=== PATIENT | male | born 2000 | race Caucasian/White ===

== ENCOUNTER 2022-05-02 19:53 | Emergency (ER) | payer OTHER, SELFPAY ==
--- NOTE | ~2022-05-02 | XR_ITS ---
EXAMINATION: XR CHEST CLINICAL INFORMATION: Shortness of breath COMPARISON: Chest x-ray on 06/10/2011 TECHNIQUE: 2 views of the chest were obtained. FINDINGS: No significant abnormality is noted involving the heart, lungs, mediastinum, bony thorax or soft tissues. XR/XR chest 2V IMPRESSION: Unremarkable examination.
[2022-05-02 20:05] VITALS: BP 120/58; PULSE 104; RESP 16; TEMP 37.7; O2SAT 99; BMI 26.6
--- NOTE | 2022-05-02 20:05 | ED.URI ---
HPI - URI/Sore Throat General Chief Complaint: General Medical Stated Complaint: fever,sob,chest hurts ,cough Time Seen by Provider: 05/02/22 22:03 Related Data Previous Rx's Medication Instructions Recorded fluoxetine 20 mg capsule 20 mg PO DAILY 90 days #90 caps 10/21/21 clonazepam 0.5 mg tablet 0.5 mg PO DAILY PRN anxiety #7 tabs 03/05/22 fluoxetine 10 mg capsule 10 mg PO DAILY 90 days #90 caps 03/05/22 trazodone 100 mg tablet 100 mg PO BEDTIME 90 days #90 tabs 03/05/22 clotrimazole 1 % topical cream 1 appl topical BID 4 weeks #45 04/09/22 grams miconazole nitrate 2 % topical 1 appl topical BID #85 grams 04/09/22 powder (Zeasorb AF) Allergies Allergy/AdvReac Type Severity Reaction Status Date / Time No Known Allergies Allergy Verified 04/09/22 09:23 [facility] Past Medical History Medical History Chronic headaches Generalized anxiety disorder Recurrent depression Family History Family History Mother No problems noted. Father No problems noted. Brother No problems noted. Brother No problems noted. Brother No problems noted. Paternal Aunt Brain cancer Maternal Uncle Cholangiocarcinoma Father Cancer of white blood cells Paternal Grandmother Myocardial infarction Social History Social History Household Members: Family Housing: Other (with parents) Alcohol intake: current Alcohol intake frequency: holidays/special occasions only Patient Tobacco Use Status: Never used Tobacco Smoked in Last 30 Days: No e-Cigarette/Vaping Use: Never Used Second Hand Smoke Exposure: No Use of substances other than those prescribed or required for medical reasons: No Advance Directives: No Current occupational status: employed Cognitive needs: No Hearing needs: No Vision needs: No Physical Exam Vital Signs: Vital Signs: Last Vital Signs Temp 99.8 F 05/02/22 23:42 Pulse 94 05/02/22 23:42 Resp 16 05/02/22 23:42 BP 109/57 L 05/02/22 23:42 Pulse Ox 95 05/02/22 23:42 O2 Del Method 05/02/22 23:42 BMI result Body Mass Index 26.6 Course Course Course Narrative: RME: Patient is a 21-year-old male with a past medical history of anxiety and insomnia, who presents emergency department for evaluation of respiratory symptoms. Reports last night began with shortness of breath, today with fever T max 103, chest tightness with difficulty breathing, cough. Denies sick contacts. Has not received vaccination for COVID-19 or influenza. States that he had COVID-19 diagnosed 16 days ago, symptoms lasted for approximately 3 days and then completely resolved. He was symptom-free for 2 weeks. PE: CA&)x4. No apparent respiratory distress. Speaking clear full sentences. LSCTA. Plan: COVID-19/influenza testing, chest x-ray Medications Administered Discontinued Medications Generic Name Dose Route Start Last Admin Trade Name Freq PRN Reason Stop Dose Admin Acetaminophen 975 mg 05/02/22 22:16 05/02/22 22:21 Acetaminophen 325 Mg Tablet PO 05/02/22 22:17 975 mg ONCE ONE Administration MDM - URI/Sore Throat Lab Data Labs: Lab Results 05/02/22 05/02/22 05/02/22 Range/Units 20:12 20:12 22:31 COVID-19 ([facility]IN) Negative (Negative) COVID-19 Clin Com See Note Influenza Type A (MIREYA) Negative (Negative) Influenza Type A (PCR) NEGATIVE (Negative) Influenza Type B (MIREYA) Negative (Negative) Influenza Type B (PCR) NEGATIVE (Negative) Influenza A & B Note See Note RSV RNA Qual (PCR) NEGATIVE (Negative) SARS-CoV-2 RNA (RT-PCR) NEGATIVE (Negative) Discharge Plan Discharge Clinical Impression: Acute viral syndrome Patient Disposition: Home, Self-Care Instructions: Viral Syndrome (ED) Additional Instructions: May take Tylenol, 1000 mg every 4 hours and/or ibuprofen 600 mg every 8 hours. Prescriptions: No Action fluoxetine 10 mg capsule 10 mg PO DAILY 90 Days Qty: 90 2RF trazodone 100 mg tablet 100 mg PO BEDTIME 90 Days Qty: 90 2RF clonazepam 0.5 mg tablet 0.5 mg PO DAILY PRN (Reason: anxiety) Qty: 7 0RF fluoxetine 20 mg capsule 20 mg PO DAILY 90 Days Qty: 90 1RF clotrimazole 1 % cream 1 appl topical BID 28 Days Qty: 45 0RF miconazole nitrate [Zeasorb AF] 2 % powder 1 appl topical BID Qty: 85 2RF Referrals: Po,Ned Palmer MD [Primary Care Provider] - 3 days Stand Alone Forms: Work/School Release Interventions: ED Discharge Assessment Last Done: 05/03/22 01:00 Discharge Date/Time: 05/03/22 01:01
[2022-05-02 20:35] LABS: IDNOW Serial# 9DB6401D; Influenza A Negative (Negative); Influenza B2 Negative (Negative)
[2022-05-02 20:36] LABS: COVID-19 Test Negative (Negative); IDNOW Serial# 55D5AD1C
[2022-05-02 22:00] VITALS: BP 114/54; PULSE 87; RESP 16; TEMP 39.3; O2SAT 99
--- NOTE | 2022-05-02 22:16 | ED.SOB ---
HPI - SOB/Dyspnea General Chief Complaint: General Medical Stated Complaint: fever,sob,chest hurts ,cough Time Seen by Provider: 05/02/22 22:03 Source: patient and family Mode of arrival: ambulatory Limitations: no limitations History of Present Illness HPI Narrative: 21-year-old male with no significant past medical history presents to the emergency department today complaining of difficulty breathing. States last night while at work, it started, it has progressed throughout today. The patient noted a temperature of 103.5? F at home this morning, but no other symptoms. Patient states he does have a cough and this produces some midsternal chest pain. COVID positive approximately 2 and half weeks ago. Nonsmoker, no ill contacts. The patient does state there are no exacerbating factors, although sitting up does relieve his symptoms somewhat. MD elicited complaint: shortness of breath and cough Onset (ago): day(s) (1) Timing: constant Severity: moderate Exacerbating factors: nothing Related Data Home oxygen amount: none Previous Rx's Medication Instructions Recorded fluoxetine 20 mg capsule 20 mg PO DAILY 90 days #90 caps 10/21/21 clonazepam 0.5 mg tablet 0.5 mg PO DAILY PRN anxiety #7 tabs 03/05/22 fluoxetine 10 mg capsule 10 mg PO DAILY 90 days #90 caps 03/05/22 trazodone 100 mg tablet 100 mg PO BEDTIME 90 days #90 tabs 03/05/22 clotrimazole 1 % topical cream 1 appl topical BID 4 weeks #45 04/09/22 grams miconazole nitrate 2 % topical 1 appl topical BID #85 grams 04/09/22 powder (Zeasorb AF) Allergies Allergy/AdvReac Type Severity Reaction Status Date / Time No Known Allergies Allergy Verified 04/09/22 09:23 Review of Systems Constitutional: Constitutional: Denies chills, Denies fever(s) and Denies weakness Eyes: Eyes: Denies diplopia and Denies eye discharge ENT: Denies dizziness, Denies nasal congestion and Denies sore throat Cardiovascular: Cardiovascular: Denies syncope, Denies rapid heart rate, Denies Loss of Consciousness, Denies palpitations and Denies dyspnea Respiratory: Respiratory: Reports no additional respiratory complaints, Reports pain on inspiration, Reports pain with cough, Denies dyspnea and Denies wheezing Gastrointestinal: Gastrointestinal: Reports no additional gastrointestinal complaints, Denies diarrhea, Denies nausea and Denies vomiting Genitourinary: Genitourinary: Reports no additional male genitourinary complaints Musculoskeletal: Musculoskeletal: Reports no additional musculoskeletal complaints, Denies back pain and Denies myalgias Integumentary/Breasts: Skin/Breast: Denies jaundice Neurologic: Denies Abnormal speech present, Denies dizziness, Denies syncope, Denies Sensory deficit (Neuro) and Denies weakness Endocrine: Endocrine: Denies palpitations Hematologic/Lymphatic: Hematologic/Lymphatic: Denies lymphadenopathy Allergic/Immunologic: Allergic/Immunologic: Denies wheezing PMFSH Past Medical History Attestation statement: The following information was validated with the patient. Source: nursing notes reviewed Medical History Chronic headaches Generalized anxiety disorder Recurrent depression Family History Family History Mother No problems noted. Father No problems noted. Brother No problems noted. Brother No problems noted. Brother No problems noted. Paternal Aunt Brain cancer Maternal Uncle Cholangiocarcinoma Father Cancer of white blood cells Paternal Grandmother Myocardial infarction Social History Social History Household Members: Family Housing: Other (with parents) Alcohol intake: current Alcohol intake frequency: holidays/special occasions only Patient Tobacco Use Status: Never used Tobacco Smoked in Last 30 Days: No e-Cigarette/Vaping Use: Never Used Second Hand Smoke Exposure: No Use of substances other than those prescribed or required for medical reasons: No Advance Directives: No Current occupational status: employed Cognitive needs: No Hearing needs: No Vision needs: No Physical Exam Vital Signs: Vital Signs: Last Vital Signs Temp 99.8 F 05/02/22 23:42 Pulse 94 05/02/22 23:42 Resp 16 05/02/22 23:42 BP 109/57 L 05/02/22 23:42 Pulse Ox 95 05/02/22 23:42 O2 Del Method 05/02/22 23:42 BMI result Body Mass Index 26.6 Vital signs are normal with the exception of a temperature 102.7? F Const: General: cooperative, no acute distress, alert, awake and tired appearing; No diaphoretic Nutritional Appearance: average body habitus Orientation/consciousness: patient oriented x3 Limitations: no limitations HEENT: Head: Yes normal to inspection, Yes normocephalic and Yes atraumatic Ears: hearing grossly normal bilaterally General nose exam: Normal external nose present Face and sinus: Yes normal facial exam Mouth: Normal oral and palatal mucosa present Eyes: General: appearance normal, both eyes and all related structures Conjunctivae: conjunctivae normal Sclerae: sclerae normal Pupils: Equal, round and reactive pupils present EOM: EOMs intact bilaterally Neck: Neck: Yes normal visual inspection and Yes full ROM Resp: Effort & Inspection: normal respiratory effort, normal respiratory pattern, no cough and respiratory effort not decreased Auscultation: clear to auscultation bilaterally, no rales and no rhonchi Cardio: Rate: regular rate Rhythm: regular rhythm Heart sounds: no murmurs GI: Inspection: Yes normal to inspection, No Abdominal wall edema and No distended Palpation (GI): not soft and nontender Back/Spine/Pelvis: Cervical Spine: normal cervical lordosis and cervical ROM normal Skin: General skin exam: no rashes or lesions noted, no jaundice and no pallor Neuro: General: patient oriented x3 and CN's II-XI intact bilaterally Cranial nerves: Yes Equal, round and reactive pupils present Cognition (Neuro): normal cognition Speech: No Abnormal speech present Motor exam (neuro): 5/5 motor strength present throughout Sensory Exam: No Sensory deficit (Neuro) Medications Administered Discontinued Medications Generic Name Dose Route Start Last Admin Trade Name Freq PRN Reason Stop Dose Admin Acetaminophen 975 mg 05/02/22 22:16 05/02/22 22:21 Acetaminophen 325 Mg Tablet PO 05/02/22 22:17 975 mg ONCE ONE Administration MDM - SOB/Dyspnea MDM Narrative Medical decision making narrative: 21-year-old male with no significant past medical history presents with fever and cough. RSV, COVID, flu tests all negative. Chest x-ray negative. Patient was observed in the emergency department for several hours, did receive Tylenol, and has defervesced. He feels well enough to go home at this time. He will be advised to take ibuprofen and/or Tylenol over the next 24-36 hours. He is given a work note for tomorrow. Most likely diagnosis is a viral syndrome. Lab Data Attestation: I reviewed the patient's lab results. Lab results narrative: Negative COVID, negative flu, negative RSV. Labs: Lab Results 05/02/22 05/02/2205/02/22 Range/Units 20:12 20:12 22:31 COVID-19 ([facility]) Negative (Negative) COVID-19 Clin Com See Note Influenza Type A (MIREYA) Negative (Negative) Influenza Type A (PCR) NEGATIVE (Negative) Influenza Type B (MIREYA) Negative (Negative) Influenza Type B (PCR) NEGATIVE (Negative) Influenza A & B Note See Note RSV RNA Qual (PCR) NEGATIVE (Negative) SARS-CoV-2 RNA (RT-PCR) NEGATIVE (Negative) Imaging Data Chest x-ray: Attestation: I personally reviewed and interpreted this imaging study as follows: My impression: No acute disease Radiologist's impression: No acute pulmonary disease Discharge Plan Discharge Clinical Impression: Acute viral syndrome Patient Disposition: Home, Self-Care Instructions: Viral Syndrome (ED) Additional Instructions: May take Tylenol, 1000 mg every 4 hours and/or ibuprofen 600 mg every 8 hours. Prescriptions: No Action fluoxetine 10 mg capsule 10 mg PO DAILY 90 Days Qty: 90 2RF trazodone 100 mg tablet 100 mg PO BEDTIME 90 Days Qty: 90 2RF clonazepam 0.5 mg tablet 0.5 mg PO DAILY PRN (Reason: anxiety) Qty: 7 0RF fluoxetine 20 mg capsule 20 mg PO DAILY 90 Days Qty: 90 1RF clotrimazole 1 % cream 1 appl topical BID 28 Days Qty: 45 0RF miconazole nitrate [Zeasorb AF] 2 % powder 1 appl topical BID Qty: 85 2RF Referrals: Po,Ned Palmer MD [Primary Care Provider] - 3 days Stand Alone Forms: Work/School Release
[2022-05-02] MEDS: Acetaminophen 325 MG TABLET 975 MG PO (22:21)
[2022-05-02 23:20] LABS: Influenza A PCR NEGATIVE (Negative); Influenza B PCR NEGATIVE (Negative); Resp Syncy Virus RNA Qual PCR NEGATIVE (Negative); SARS COV2 PCR INHOUSE NEGATIVE (Negative)
[2022-05-02 23:42] VITALS: BP 109/57; PULSE 94; RESP 16; TEMP 37.7; O2SAT 95
== END 2022-05-03 01:01 | disposition home or self-care (01) ==
PROVIDERS: Nurse Practitioner Family; Emergency Provider Emergency Medicine; PCP Internal Medicine
DX: B34.9 Viral infection, unspecified (principal); R50.9 Fever, unspecified; R05.9 Cough, unspecified; Z20.822 Contact with and (suspected) exposure to COVID-19
CPT/HCPCS: 0241U; 71046; 87502; 87635; 99283; 99284

== ENCOUNTER 2024-04-13 08:30 | Outpatient (REF) | payer OTHER, SELFPAY ==
[2024-04-13 09:53] LABS: MANUAL DIFF FLAG NO
[2024-04-13 11:03] LABS: Basophils Percent Auto 0.7 % (0-2); Eosinophils Absolute Auto 0.1 X10*3/uL (0.0-0.4); Eosinophils Percent Auto 1.5 % (0-4); Hematocrit 46.7 % (42.0-52.0); Hemoglobin 15.8 g/dl (14.0-18.0); Imm Gran Abs Auto 0.02 X10*3/uL (0.00-0.03); Imm Gran Pct Auto 0.3 % (0.0-0.4); Lymphocytes Absolute Auto 1.5 X10*3/uL (1.2-4.9); Lymphocytes Percent Auto 25.2 % (20-40); Mean Corpuscular HGB Conc 33.8 g/dl (31.0-36.0); Mean Corpuscular Hemoglobin 29.7 pg (27.0-33.0); Mean Corpuscular Volume 87.8 fL (80.0-98.0); Mean Platelet Volume 11.1 fL (9.4-12.4); Monocytes Absolute Auto 0.4 X10*3/uL (0.1-1.2); Monocytes Percent Auto 7.2 % (2-11); Neutrophils Percent Auto 65.1 % (45-73); Platelet Count 216 X10*3/uL (160-400); Red Blood Count 5.32 X10*6/uL (4.60-5.80); Red Cell Distribution Width 12.4 % (11.0-16.0); White Blood Count 6.1 X10*3/uL (4.8-10.8)
[2024-04-13 11:45] LABS: Alanine Aminotransferase 52 U/L (0-40); Albumin Level 4.3 g/dL (3.5-5.0); Alkaline Phosphatase 61 U/L (39-117); Anion Gap 12 (12-20); Aspartate Amino Transferase 27 U/L (5-37); Bilirubin Total 0.3 mg/dL (0.0-1.0); Blood Urea Nitrogen 14 mg/dL (9-16); Calcium 9.6 mg/dL (8.4-10.2); Carbon Dioxide 26 mmol/L (22-29); Chloride 108 mmol/L (96-108); Estimated Glomerular Filt Rate > 60; Glucose Random 112 mg/dL (60-115); Sodium 142 mmol/L (135-145)
[2024-04-13 12:04] LABS: Free T4 (Free Thyroxine) 0.71 ng/dL (0.71-1.85); TSH reflex Free T4 1.96 uIU/mL (0.32-4.0)
[2024-04-13 12:11] LABS: Folate 5.9 ng/mL (> or = 4.0); Vitamin B12 522 pg/mL (200-900)
[2024-04-17 16:59] LABS: Vitamin D 25-OH, D2 <4 ng/mL; Vitamin D 25-OH, D3 19 ng/mL; Vitamin D 25-OH, Total 19 ng/mL (30-100)
== END 2024-04-13 08:31 | disposition home or self-care (01) ==
LOC: HO.LAB 08:30
PROVIDERS: PCP Internal Medicine
DX: Z00.00 Encounter for general adult medical examination without abnormal findings (principal); B35.6 Tinea cruris; F41.1 Generalized anxiety disorder; F33.9 Major depressive disorder, recurrent, unspecified; K21.9 Gastro-esophageal reflux disease without esophagitis; Z79.899 Other long term (current) drug therapy
CPT/HCPCS: 36415; 80053; 82306; 82607; 82746; 84439; 84443; 85025; 96127; 99395

== ENCOUNTER 2024-04-13 08:30 | Outpatient (AMB) | payer OTHER, SELFPAY ==
[2024-04-13 08:39] VITALS: BP 106/70; PULSE 110; O2SAT 96; BMI 24.8
--- NOTE | 2024-04-13 08:39 | A.OFFPC_ITS ---
Vital Signs 04/13/24 08:39 Height 6 ft Weight 183 lb BMI 24.8 BP 106/70 Blood Pressure Location Lt brachial Position Sitting Pulse 110 H Pulse Source Pulse Oximeter Pulse Oximetry (%) 96 Oxygen Delivery Method Room Air Intake Visit Reasons: annual exam Intake Note: Patient is here today for a physical. Allergies No Known Allergies Allergy (Verified 04/13/24 08:58) Medication List - Last Reconciled 04/13/24 by Nancy Austin PA-C clonazepam 0.5 mg PO DAILY PRN fluoxetine 10 mg PO DAILY 90 days fluoxetine 20 mg PO DAILY 90 days trazodone 100 mg PO BEDTIME 90 days Tobacco use date assessed: 04/13/24 Dental Screening Dental Screen Date: 04/13/24 Did you have a dental visit in the last 12 months?: No Did you have a dental problem in the last 6 months where you did not have access to dental care?: No HPI annual exam HPI Details 23-year-old male with past medical histo ry of generalized anxiety disorder last seen 04/09/2022 coming in for annual exam. Patient was admitted at [facility] for several months due to issues with Xanax . He feels his anxiety and depression is not well managed at this time on the fluoxetine. He stated this morning he woke up every morning with an anxiety attack. He is also concerned about his jock itch returning. [facility] Medical History Recurrent depression Generalized anxiety disorder Chronic headaches Family History Mother No problems noted. Father No problems noted. Brother No problems noted. Brother No problems noted. Brother No problems noted. Paternal Aunt Brain cancer Maternal Uncle Cholangiocarcinoma Father Cancer of white blood cells Paternal Grandmother Myocardial infarction Social History Household Members: Family Both parents involved: Yes Housing: Other (with parents) Alcohol intake: current Alcohol intake frequency: holidays/special occasions only Patient Tobacco Use Status: Never used Tobacco e-Cigarette/Vaping Use: Never Used Second Hand Smoke Exposure: No Current occupational status: employed Cognitive needs: No Hearing needs: No Vision needs: No Questionnaire PHQ-9 Over the last 2 weeks, how often have you been bothered by any of the following problems? 1. Little interest or pleasure in doing things: several days 2. Feeling down, depressed, or hopeless: several days 3. Trouble falling or staying asleep, or sleeping too much: several days 4. Feeling tired or having little energy: several days 5. Poor appetite or overeating: several days 6. Feeling bad about yourself - or that you are a failure or have let yourself or your family down: several days 7. Trouble concentrating on things, such as reading the newspaper or watching television: not at all 8. Moving or speaking so slowly that other people could have noticed. Or the opposite - being so fidgety or restless that you have been moving around a lot more than usual: several days 9. Thoughts that you would be better off or of hurting yourself in some way: not at all Total score: 7 Depression Screening Interpretation: Positive Depression Screening Follow-up: Existing condition and In treatment Depression Screening Done: Yes 49549 - PHQ-9 Billing: Yes Source: Developed by Drs. Roney Thomas, Nathalie Vail, Isaias Norman and colleagues, with an educational mikayla from [employer]. Thrive Questionnaire Date Thrive assessed: 10/21/21 I am a: Patient What is your living situation today?: I have a steady place to live Within the past 12 months, did the food you bought not last and you didn't have the money to get more?: I choose not to answer this question Within the past 12 months, did you worry whether your food would run out before you got money to buy more?: I choose not to answer this question Do you have trouble paying for medicines?: I choose not to answer this question Do you have trouble getting transportation to medical appointments?: No Do you have trouble paying your heating and electricity bill?: No Do you have trouble taking care of your child, family member or friend?: I choose not to answer this question Do you have trouble with day-to-day activities such as bathing, preparing meals, shopping, managing finances, etc.?: I choose not to answer this question Are you currently unemployed and looking for a job?: Yes Are you interested in more education?: I choose not to answer this question Please select the resources that you would like help with: None Currently or been in a relationship where the following occur: I choose not to answer THRIVE Score: 0 AUDIT C Alcohol Use Questionnaire (AUDIT-C) 1. How often do you have a drink containing alcohol?: Monthly or less 2. How many drinks containing alcohol do you have on a typical day when you are drinking?: 3 or 4 3. How often do you have six or more drinks on one occasion?: Less than monthly Total Score: 3 MARGARITA-7 AMB Questionnaire MARGARITA-7 Date MARGARITA - 7 assessed: 04/13/24 Feeling nervous, anxious, or on edge: 2 = More than half the days Not being able to stop or control worryin = More than half the days Worrying too much about different things: 2 = More than half the days Trouble relaxin = More than half the days Being so restless that it is hard to sit still: 1 = Several days Becoming easily annoyed or irritable: 1 = Several days Feeling afraid as if something awful might happen: 0 = Not at all Total MARGARITA-7 score (0-4 normal; 5-9 mild; 10-14 moderate; 15-21 severe): 10 Source: Developed by Drs. Roney Thomas, Nathalie Vail, Isaias Norman and colleagues, with an educational mikayla from [employer]. MARGARITA-7 Assessment Billing MARGARITA-7 Assessment Tool: MARGARITA-7 Assessment 07552 Review of Systems Const Denies body aches, Denies fatigue, Denies fever(s), Denies frequent falls, Denies headache(s) and Denies weakness Eyes Reports no additional complaints and Denies change in vision ENT Denies dysphagia, Denies dizziness, Denies facial pain, Denies headache(s), Denies nasal congestion and Denies odynophagia Card Denies chest pain, Denies syncope, Denies irregular heart rhythm, Denies leg edema, Denies lightheadedness and Denies dyspnea Resp Denies cough and Denies dyspnea GI Denies abdominal pain, Denies constipation, Denies dysphagia, Denies dyspepsia, Denies heartburn, Denies diarrhea, Reports nausea (in the AM ), Denies odynophagia and Denies vomiting Denies dysuria, Denies urinary frequency, Denies urinary hesitancy and Denies urinary urgency Musc Denies back pain and Denies myalgias Skin/Breast Reports system reviewed and no additional complaints, except as documented Neuro Denies dizziness, Denies syncope, Denies frequent falls, Denies headache(s) and Denies weakness Psych Reports no additional complaints Endo Denies fatigue Physical exam (Primary Care) Vital Signs: Last Vital Signs Pulse 110 H 04/13/24 08:39 BP 106/70 04/13/24 08:39 Pulse Ox 96 04/13/24 08:39 Oxygen Delivery Method Room Air 04/13/24 08:39 BMI result Body Mass Index 24.8 Tobacco/Smoking Status: Tobacco use Status Tobacco use date assessed 04/13/24 04/13/24 08:46 Patient Tobacco Use Status Never used Tobacco 04/13/24 08:46 e-Cigarette/Vaping Use Never Used 04/13/24 08:46 PHQ-9: PHQ-9 Score PHQ-9: Total score 7 04/13/24 08:46 Depression Screening Interpretation: Positive Depression Screening Follow-up: Existing condition and In treatment Thrive Assessment: Date of Thrive Assessment Date Thrive assessed 10/21/21 04/13/24 08:46 Currently or been in a relationship where the following occur: I choose not to answer Const General: cooperative, healthy appearing, comfortable and no acute distress Orientation/consciousness: patient oriented x3 HENMT Head: Yes normocephalic Ears: hearing grossly normal bilaterally, external ears normal, TM's normal bilaterally and EAC's normal General nose exam: Normal external nose present Face and sinus: Yes normal facial exam and Yes sinuses nontender Mouth: Normal oral and palatal mucosa present and tongue normal Throat: Yes posterior oropharynx normal Eyes General: appearance normal, both eyes and all related structures Conjunctivae: conjunctivae normal Pupils: Equal, round and reactive pupils present EOM: EOMs intact bilaterally and No Nystagmus present Neck Neck: Yes normal visual inspection, Yes full ROM and Yes no lymphadenopathy Chest Chest palpation & inspection: normal inspection of the chest Resp Effort & Inspection: normal respiratory effort Auscultation: clear to auscultation bilaterally, no crackles, no rales, no rhonchi, no wheezes and breath sounds present Cardio Rate: regular rate Rhythm: regular rhythm Peripheral pulses: radial pulses present and dorsalis pedis present GI Inspection: Yes normal to inspection and No Abdominal wall edema Palpation (GI): Soft to palpation, not firm and nontender Auscultation: normal bowel sounds Rectal Exam - Male: Yes deferred General: Yes no CVA tenderness Back/Spine/Pelvis Back: no CVA tenderness Skin General skin exam: no rashes or lesions noted Neuro General: patient oriented x3 Cranial nerves: Yes Equal, round and reactive pupils present, Yes Midline tongue present, Yes Ability to bilaterally elevate shoulders present and No Nystagmus present Gait exam (Neuro): Normal gait present Extrem General: Yes normal to inspection, Yes full ROM, No no pedal edema and No edema Psych Speech and movement: Normal speech and movement present Affect: normal affect Insight: Good insight present (Psych) Judgement: Good judgement present (Psych) Coding Level of Care Code Est Pt Prev Care 18-39y(53615) Diagnoses Tinea cruris B35.6 Annual physical exam Z00.00 Generalized anxiety disorder F41.1 Recurrent depression F33.9 GERD (gastroesophageal reflux disease) K21.9 Additional Codes PHQ-9 - 47315 - PHQ-9 Billing: Yes ([id number]) MARGARITA-7 Assessment Billing - MARGARITA-7 Assessment Tool: MARGARITA-7 Assessment 38168 ([id number]) Assessment & Plan Assessment & Plan (1) Tinea cruris: Code(s): B35.6 - Tinea cruris Category: Medical Plan: Patient declines genital exam at this time but states symptoms are similar to last episode of jock itch. Clotrimazole cream sent to pharmacy. (2) Annual physical exam: Code(s): Z00.00 - Encounter for general adult medical examination without abnormal findings Category: Medical Plan: Patient is up-to-date on all recommended routine screenings and vaccinations for his age. Updated blood work ordered and advised to follow up in 1 year for annual physical. (3) Generalized anxiety disorder: Comment: decline referral counselling 10/2021 Code(s): F41.1 - Generalized anxiety disorder Category: Medical Plan: Continues to decline referral to counseling. Feels symptoms are not well managed on the fluoxetine but would not like to increase dose. Continues to have episodes anxiety attacks we will trial hydroxyzine as needed for anxiety attacks. Referral placed for outpatient psych clinic for further management of medications. (4) Recurrent depression: Code(s): F33.9 - Major depressive disorder, recurrent, unspecified Category: Medical Plan: Patient does not feel his depression is well managed on fluoxetine but would not like to increase the dose. Referral placed to outpatient psych clinic for medical management. (5) GERD (gastroesophageal reflux disease): Code(s): K21.9 - Gastro-esophageal reflux disease without esophagitis Category: Medical Plan: Patient complaining of epigastric pain and nausea only in the morning that typically resolves throughout the day. No tenderness to palpation on exam. Patient states he does eat very late at night and often will go to sleep shortly after eating. Avoid trigger foods such as citrus, tomato products, soda, caffeine, spicy foods and other foods that may be irritating to your stomach. Avoid laying flat 3-4 hours after eating and elevate the head of the bed 30 degrees to prevent acid from moving into the esophagus. We will trial famotidine nightly for symptoms. Plan This note was constructed using voice recognition software. While every effort has been made to ensure accuracy and child nutrition assistant, still areas may have been included sometimes these areas may affect the content or meeting of the given symptoms. Total time spent caring for the patient today was 30 minutes. This includes time spent before the visit reviewing the chart, time spent during the visit, and time spent after the visit and documentation. Orders: Orders Comprehensive Met. Panel Today Z00.00 - Encounter for general adult medical examination without abnormal findings Complete Blood Count Auto Diff Today Z00.00 - Encounter for general adult medical examination without abnormal findings Free T4 (Free Thyroxine) Today Z00.00 - Encounter for general adult medical examination without abnormal findings TSH reflex Free T4 Today Z00.00 - Encounter for general adult medical examination without abnormal findings Vitamin B12 and Folate Today Z00.00 - Encounter for general adult medical examination without abnormal findings Vitamin D 25-OH (D2 and D3) Today Z00.00 - Encounter for general adult medical examination without abnormal findings Referrals Psychiatry Outpatient Consultation Service F33.9 - Major depressive disorder, recurrent, unspecified, F41.1 - Generalized anxiety disorder Medications: New hydroxyzine HCl 25 mg PO BID PRN 20 tabs 0RF anxiety famotidine 20 mg PO BEDTIME 30 tabs 0RF clotrimazole 1% 1 appl topical BID 45 grams 0RF B35.6 - Tinea cruris Refilled fluoxetine 10 mg PO DAILY 90 days 90 caps 2RF F33.9 - Major depressive disorder, recurrent, unspecified fluoxetine 20 mg PO DAILY 90 days 90 caps 0RF F41.1 - Generalized anxiety disorder miconazole nitrate 2% (Zeasorb AF) 1 appl topical BID 85 grams 2RF B35.6 - Tinea cruris
== END 2024-04-13 09:13 | disposition home or self-care (01) ==
LOC: HO.HMCH 08:30
PROVIDERS: PCP Internal Medicine
DX: B35.6 Tinea cruris (principal); Z00.00 Encounter for general adult medical examination without abnormal findings; F41.1 Generalized anxiety disorder; F33.9 Major depressive disorder, recurrent, unspecified; K21.9 Gastro-esophageal reflux disease without esophagitis

== ENCOUNTER → 2024-07-14 08:51 | Outpatient (BNVA) | payer OTHER, SELFPAY | PROVIDERS: PCP Internal Medicine | DX: K21.9 Gastro-esophageal reflux disease without esophagitis (principal); F41.1 Generalized anxiety disorder; F33.9 Major depressive disorder, recurrent, unspecified | CPT/HCPCS: 96127; 99212 ==

== ENCOUNTER 2024-11-09 12:10 | Outpatient (REF) | payer OTHER, SELFPAY ==
--- NOTE | ~2024-11-09 | XR_ITS ---
EXAMINATION: XR CHEST 2 VIEWS HISTORY: R05.9 - Cough, unspecified COMPARISON: Comparison is made with the prior examination dated 05/02/2022. FINDINGS: PA and lateral views of the chest are submitted. The lungs are expanded and clear. There is no pleural effusion, pneumothorax, or pulmonary vascular congestion. The heart is normal in size. The bones are intact. XR/XR chest 2V IMPRESSION: No acute cardiopulmonary abnormality. Electronically signed by: Roney Abebe MD 11/09/2024 02:28 PM EDT
== END 2024-11-09 12:11 | disposition home or self-care (01) ==
LOC: HO.HMGCX 12:10
PROVIDERS: PCP Internal Medicine; Visit Provider Physician Assistant
DX: J22 Unspecified acute lower respiratory infection (principal); R05.9 Cough, unspecified
CPT/HCPCS: 71046; 99212

== ENCOUNTER 2024-11-09 12:10 | Outpatient (AMB) | payer OTHER, SELFPAY ==
[2024-11-09 13:28] VITALS: BP 114/80; PULSE 96; RESP 15; TEMP 36.8; O2SAT 96; BMI 20.5
--- NOTE | 2024-11-09 13:28 | MHC.OFFWIV ---
Intake Vital Signs 11/09/24 13:28 Height 6 ft Weight 151 lb 8 oz BMI 20.5 BP 114/80 Blood Pressure Location Rt brachial Position Sitting Respiration 15 Pulse 96 Pulse Source Pulse Oximeter Temp 98.2 F Temp Source Oral Pulse Oximetry (%) 96 Intake Visit Reasons: EP wheezing, dizzy, coughing, SOB Intake Note: Pt is here today c/o wheezing, dizzy, coughing and SOB x2wks Patient Tobacco Use Status: Never used Tobacco Allergies No Known Allergies Allergy (Verified 07/14/24 08:59) HPI HPI Comments History of Present Illness Details History - The patient is a 24-year-old male presenting with shortness of breath, wheezing, and cough. - Symptoms have been ongoing for approximately two weeks, with associated wheezing on exhalation and multiple episodes of cough and congestion. - The patient reports nausea and vomiting in the last 24 hours, followed by transient diarrhea without blood or black in stools. - There is a noted history of vaping marijuana; however, attempts to decrease usage are ongoing, with acknowledgment of its adverse effects on respiratory health. - Use of [id number] Mucinex for symptomatic relief during the last few days. - The patient regularly takes trazodone for sleep, which historically has not caused adverse effects until recent nausea. - No significant mentions of previous allergy history Physical Exam General: Cooperative, healthy appearing, comfortable and no acute distress Orientation/consciousness: Patient oriented x3 Limitations: No limitations Head: Normal to inspection Ears: Hearing grossly normal bilaterally, external ears normal and TM's normal bilaterally Nose: Normal external nose present, Normal nares present and No nasal discharge present Face and sinus: Normal facial exam and Yes sinuses nontender Mouth: Normal oral and palatal mucosa present and moist mucous membranes Throat: Yes tonsils normal, Yes uvula midline. Posterior oropharynx erythema, cobblestoning present Eyes: Appearance normal, both eyes and all related structures Neck: Normal visual inspection Respiratory: Expiratory wheezes bilaterally with rhonchi. Normal respiratory effort, able to speak in complete sentences, Actively coughing, no respiratory distress, not tachypneic, no tripod positioning and no use of accessory muscles Cardiovascular: Regular rate and rhythm. Normal S1 and S2 Skin: No rashes or lesions noted Neuro: Patient oriented x3 Extremities: Normal to inspection and Yes no clubbing, cyanosis or edema [facility] Medical History Recurrent depression Generalized anxiety disorder Chronic headaches Family History Mother No problems noted. Father No problems noted. Brother No problems noted. Brother No problems noted. Brother No problems noted. Paternal Aunt Brain cancer Maternal Uncle Cholangiocarcinoma Father Cancer of white blood cells Paternal Grandmother Myocardial infarction Social History Household Members: Family Both parents involved: Yes Housing: Other Alcohol intake: current Alcohol intake frequency: holidays/special occasions only Patient Tobacco Use Status: Never used Tobacco e-Cigarette/Vaping Use: Never Used Second Hand Smoke Exposure: No service: No Current occupational status: employed Cognitive needs: No Hearing needs: No Vision needs: No Review of Systems Const All systems reviewed & are unremarkable except as noted in HPI and below Physical Exam Vital Signs: Last Vital Signs Temp 98.2 F 11/09/24 13:28 Pulse 96 11/09/24 13:28 Resp 15 11/09/24 13:28 BP 114/80 11/09/24 13:28 Pulse Ox 96 11/09/24 13:28 BMI result Body Mass Index 20.5 Assessment & Plan Assessment & Plan (1) Lower respiratory infection (e.g., bronchitis, pneumonia, pneumonitis, pulmonitis): Code(s): J22 - Unspecified acute lower respiratory infection Plan: VSS, pt well appearing and PE remarkable for exp wheezes and rhonchi. Plan - Start prednisone to reduce airway inflammation immediately. - Obtain a chest X-ray to exclude pneumonia, given lung congestion and wheezing. Will RX abx pending read. - Address seasonal allergies suspected from throat cobblestoning, considering antihistamines. - Encourage continued reduction in vaping of marijuana to limit respiratory harm. - Instruct on picking up medications promptly to commence treatment effectively. - Plan a follow-up call to discuss further adjustments following imaging results. Patient was informed and verbally consented to the use of an ambient scribe for clinic note documentation during this visit Orders: Orders XR chest 2V Today R05.9 - Cough, unspecified Medications: New prednisone 40 mg (2 x 20 mg) PO QAM 10 tabs 0RF Coding Level of Care Code Est Pt Level 4 (15094) Diagnoses Lower respiratory infection (e.g., bronchitis, pneumonia, pneumonitis, pulmonitis) J22
== END 2024-11-09 14:10 | disposition home or self-care (01) ==
PROVIDERS: PCP Internal Medicine; Visit Provider Physician Assistant
DX: J22 Unspecified acute lower respiratory infection (principal)

== ENCOUNTER → 2024-11-09 14:13 | Outpatient (BNV) | payer OTHER, SELFPAY | PROVIDERS: PCP Internal Medicine; Visit Provider Radiology Diagnostic Radiology | DX: R05.9 Cough, unspecified (principal) | CPT/HCPCS: 71046 ==

== ENCOUNTER 2025-02-24 10:13 | Outpatient (REF) | payer OTHER, SELFPAY ==
[2025-02-24 13:39] LABS: MANUAL DIFF FLAG NO
[2025-02-24 13:43] LABS: Hematocrit 50.4 % (42.0-52.0); Hemoglobin 17.7 g/dl (14.0-18.0); Imm Gran Abs Auto 0.01 X10*3/uL (0.00-0.03); Imm Gran Pct Auto 0.2 % (0.0-0.4); Lymphocytes Absolute Auto 2.0 X10*3/uL (1.2-4.9); Mean Corpuscular HGB Conc 35.1 g/dl (31.0-36.0); Mean Corpuscular Hemoglobin 30.2 pg (27.0-33.0); Mean Corpuscular Volume 85.9 fL (80.0-98.0); NRBC Abs Auto 0.000 X10*3/uL (0.0-0.012); NRBC Pct Auto 0.0 /100WBC (0.0-0.2); Platelet Count 252 X10*3/uL (160-400); Red Blood Count 5.87 X10*6/uL (4.60-5.80); White Blood Count 4.8 X10*3/uL (4.8-10.8)
[2025-02-24 14:00] LABS: Alanine Aminotransferase 43 U/L (0-40); Albumin Level 5.0 g/dL (3.5-5.0); Alkaline Phosphatase 72 U/L (39-117); Anion Gap 13 (12-20); Aspartate Amino Transferase 33 U/L (5-37); Blood Urea Nitrogen 15 mg/dL (9-16); Calcium 9.9 mg/dL (8.4-10.2); Carbon Dioxide 28 mmol/L (22-29); Chloride 103 mmol/L (96-108); Estimated Glomerular Filt Rate > 60; Potassium 4.8 mmol/L (3.3-5.1); Sodium 139 mmol/L (135-145); Total Protein 8.0 g/dL (6.5-8.0)
== END 2025-02-24 10:14 | disposition home or self-care (01) ==
LOC: HO.HMGCLDS 10:13
PROVIDERS: PCP Internal Medicine; Visit Provider Physician Assistant
DX: K62.5 Hemorrhage of anus and rectum (principal)
CPT/HCPCS: 36415; 80053; 85025; 99212

== ENCOUNTER 2025-02-24 10:13 | Outpatient (AMB) | payer OTHER, SELFPAY ==
[2025-02-24 10:16] VITALS: BP 120/80; PULSE 104; TEMP 36.8; O2SAT 98; BMI 25.1
--- NOTE | 2025-02-24 10:16 | MHC.OFFWIV ---
Intake Vital Signs 02/24/25 10:16 Height 6 ft Weight 185 lb BMI 25.1 BP 120/80 Blood Pressure Location Lt brachial Position Sitting Pulse 104 H Pulse Source Pulse Oximeter Temp 98.2 F Temp Source Oral Pulse Oximetry (%) 98 Oxygen Delivery Method Room Air Intake Visit Reasons: ep dry heaving stomach pain Intake Note: pt presents with sharp pain at umbilical, blood in stools, weak, lightheaded, dry-heaving without vomiting- blood in stools and umbilival pain active for a few months Patient Tobacco Use Status: Never used Tobacco Allergies No Known Allergies Allergy (Verified 02/24/25 10:26) Do you need a note to return to daycare/school/sports/work: No HPI HPI Comments History of Present Illness Details This is a 24-year-old male with no stated past medical or surgical history presenting for evaluation bright red blood stools that occurs approximately 5 days a week over the past 2 months. Patient comes today because he has become nauseous and has been ?dry heaving? over the past 1 week. Patient denies having any fever, chills, vomiting, post-prandial pain, abdominal pain or rectal pain. He has not taken any medication for management of these symptoms. [facility] Medical History Recurrent depression Generalized anxiety disorder Chronic headaches Family History Mother No problems noted. Father No problems noted. Brother No problems noted. Brother No problems noted. Brother No problems noted. Paternal Aunt Brain cancer Maternal Uncle Cholangiocarcinoma Father Cancer of white blood cells Paternal Grandmother Myocardial infarction Social History Household Members: Family Both parents involved: Yes Housing: Other Alcohol intake: current Alcohol intake frequency: holidays/special occasions only Patient Tobacco Use Status: Never used Tobacco e-Cigarette/Vaping Use: Never Used Second Hand Smoke Exposure: No service: No Current occupational status: employed Cognitive needs: No Hearing needs: No Vision needs: No Review of Systems Const All systems reviewed & are unremarkable except as noted in HPI and below Denies body aches, Denies chills, Denies fatigue, Denies fever(s) and Denies headache(s) Eyes Reports no additional complaints ENT Reports no additional complaints, Denies headache(s) and Denies odynophagia Card Reports no additional complaints Resp Reports no additional complaints GI Denies melena, Denies bloating, Reports hematochezia, Denies change in bowel habits, Denies coffee ground emesis, Denies constipation, Denies excessive flatus, Denies early satiety, Denies dyspepsia, Denies diarrhea, Denies loose stools, Reports nausea, Denies odynophagia, Denies vomiting and Denies hematemesis Reports no additional complaints and Denies dysuria Musc Reports no additional complaints Skin/Breast Reports system reviewed and no additional complaints, except as documented Neuro Reports no additional complaints and Denies headache(s) Psych Reports no additional complaints Endo Reports no additional complaints and Denies fatigue Physical Exam Patient is tachycardic: 104bpm at the time of examination Const General: cooperative, healthy appearing, comfortable, no acute distress, well developed, alert, awake and Physically active; No acute distress or ill appearing Nutritional Appearance: average body habitus Orientation/consciousness: patient oriented x3 Limitations: no limitations Resp Effort & Inspection: normal respiratory effort and able to speak in complete sentences Auscultation: clear to auscultation bilaterally Cardio Rate: tachycardic (pulse 104bpm) Rhythm: regular rhythm GI Inspection: Yes normal to inspection, No abdominal wall ecchymosis, No distended and No obesity Palpation (GI): Soft to palpation, nontender and no guarding Auscultation: normal bowel sounds, no high pitched sounds and no hyperactive bowel sounds Rectal Exam - Male: Yes deferred (per patient request) General: Yes Bimanual renal exam normal bilaterally and Yes bladder normal to palpation Skin General skin exam: no rashes or lesions noted Neuro General: patient oriented x3 Psych Appearance: grossly normal Mental Status: mental status grossly normal Thought content: Normal thought content present Insight: Good insight present (Psych) Judgement: Good judgement present (Psych) Assessment & Plan Assessment & Plan (1) Bright red blood per rectum: Comment: Patient's abdominal exam is benign and he is declining rectal exam. Patient is well-appearing however is tachycardic. Given that this patient has an appointment with his primary care physician on March 13, laboratories will be drawn today in anticipation of this appointment. Furthermore, patient will be discharged home with Zofran to be taken as needed and omeprazole to be taken daily for the next 3 weeks. Patient is in agreement with this plan of care and understands he may require sooner follow up if his laboratories are abnormal. Code(s): K62.5 - Hemorrhage of anus and rectum Plan: Zofran q.6 to 8 hours p.r.n. nausea, omeprazole 40 mg once daily times 21 days. Follow up with PCP as previously scheduled. CBC and comprehensive panel pending today. Orders: Orders Comprehensive Met. Panel Today K62.5 - Hemorrhage of anus and rectum Complete Blood Count Auto Diff Today K62.5 - Hemorrhage of anus and rectum Medications: New ondansetron 4 mg PO Q6-8H PRN 20 tabs 0RF nausea and vomiting omeprazole 40 mg PO DAILY 21 caps 0RF Coding Level of Care Code Est Pt Level 4 (51853) Diagnoses Bright red blood per rectum K62.5 Time Spent (min) 25
== END 2025-02-24 10:52 | disposition home or self-care (01) ==
PROVIDERS: PCP Internal Medicine; Visit Provider Physician Assistant
DX: K62.5 Hemorrhage of anus and rectum (principal)

== ENCOUNTER 2025-03-14 15:33 | Outpatient (AMB) | payer OTHER, SELFPAY ==
[2025-03-14 15:35] VITALS: BP 120/84; PULSE 79; TEMP 36.1; O2SAT 98; BMI 26.2
--- NOTE | 2025-03-14 15:35 | MHC.PC.OV ---
Vital Signs 03/14/25 15:35 Height 6 ft Weight 193 lb BMI 26.2 BP 120/84 Blood Pressure Location Lt brachial Position Sitting Pulse 79 Pulse Source Pulse Oximeter Temp 97.0 F Temp Source Temporal Artery Scan Pulse Oximetry (%) 98 Oxygen Delivery Method Room Air Intake Visit Reasons: Stomach issues Allergies No Known Allergies Allergy (Verified 03/14/25 15:37) Tobacco use date assessed: 03/14/25 Dental Screening Dental Screen Date: 03/14/25 Did you have a dental visit in the last 12 months?: No Did you have a dental problem in the last 6 months where you did not have access to dental care?: No Was dental information given to patient?: Patient has dentist HPI Stomach issues HPI Details 24 year old male with past history of generalized anxiety disorder last seen 07/2024 coming in for acute problem. Patient is a 24-year-old male presenting with rectal bleeding and pain during bowel movements. Reports blood in the toilet and on toilet paper a few times a week, with more bleeding on the toilet paper. Experiences pain during bowel movements and sometimes strains, though bowel movements are not typically hard. Has not tried treatments like hemorrhoid creams or increasing fiber intake. Visited urgent care; blood work showed no anemia and normal kidney and liver function. [facility] Medical History Recurrent depression Generalized anxiety disorder Chronic headaches Family History Mother No problems noted. Father No problems noted. Brother No problems noted. Brother No problems noted. Brother No problems noted. Paternal Aunt Brain cancer Maternal Uncle Cholangiocarcinoma Father Cancer of white blood cells Paternal Grandmother Myocardial infarction Social History Household Members: Family Both parents involved: Yes Housing: Other Alcohol intake: current Alcohol intake frequency: holidays/special occasions only Patient Tobacco Use Status: Never used Tobacco e-Cigarette/Vaping Use: Never Used Second Hand Smoke Exposure: No Substance Use Type: Marijuana service: No Current occupational status: employed Cognitive needs: No Hearing needs: No Vision needs: No Questionnaire PHQ-9 Over the last 2 weeks, how often have you been bothered by any of the following problems? 1. Little interest or pleasure in doing things: several days 2. Feeling down, depressed, or hopeless: several days 3. Trouble falling or staying asleep, or sleeping too much: several days 4. Feeling tired or having little energy: several days 5. Poor appetite or overeating: several days 6. Feeling bad about yourself - or that you are a failure or have let yourself or your family down: several days 7. Trouble concentrating on things, such as reading the newspaper or watching television: not at all 8. Moving or speaking so slowly that other people could have noticed. Or the opposite - being so fidgety or restless that you have been moving around a lot more than usual: not at all 9. Thoughts that you would be better off or of hurting yourself in some way: not at all Total score: 6 Source: Developed by Drs. Roney Thomas, Nathalie Vail, Isaias Norman and colleagues, with an educational mikayla from [employer]. Thrive Questionnaire Date Thrive assessed: 07/14/24 I am a: Patient What is your living situation today?: I have a steady place to live Within the past 12 months, did the food you bought not last and you didn't have the money to get more?: Never true Within the past 12 months, did you worry whether your food would run out before you got money to buy more?: Never true Do you have trouble paying for medicines?: No Do you have trouble getting transportation to medical appointments?: No Do you have trouble paying your heating and electricity bill?: No Do you have trouble taking care of your child, family member or friend?: I choose not to answer this question Do you have trouble with day-to-day activities such as bathing, preparing meals, shopping, managing finances, etc.?: No Are you currently unemployed and looking for a job?: No Are you interested in more education?: No Please select the resources that you would like help with: None Currently or been in a relationship where the following occur: No concerns reported THRIVE Score: 0 AUDIT C Alcohol Use Questionnaire (AUDIT-C) 1. How often do you have a drink containing alcohol?: Monthly or less 2. How many drinks containing alcohol do you have on a typical day when you are drinking?: 1 or 2 3. How often do you have six or more drinks on one occasion?: Never Total Score: 1 MARGARITA-7 AMB Questionnaire MARGARITA-7 Date MARGARITA - 7 assessed: 07/14/24 Feeling nervous, anxious, or on edge: 2 = More than half the days Not being able to stop or control worryin = Several days Worrying too much about different things: 1 = Several days Trouble relaxin = Several days Being so restless that it is hard to sit still: 0 = Not at all Becoming easily annoyed or irritable: 1 = Several days Feeling afraid as if something awful might happen: 0 = Not at all Total MARGARITA-7 score (0-4 normal; 5-9 mild; 10-14 moderate; 15-21 severe): 6 Source: Developed by Drs. Roney Thomas, Nathalie Vail, Isaias Norman and colleagues, with an educational mikayla from [employer]. Review of Systems Const Denies body aches, Denies chills and Denies fever(s) Card Denies chest pain, Denies syncope and Denies lightheadedness GI Denies abdominal pain, Denies melena, Reports hematochezia, Reports constipation, Denies dyspepsia, Denies heartburn, Denies diarrhea, Denies loose stools and Denies nausea Reports no additional complaints Musc Reports no additional complaints Neuro Denies syncope Physical exam (Primary Care) Vital Signs: Last Vital Signs Temp 97.0 F 03/14/25 15:35 Pulse 79 03/14/25 15:35 BP 120/84 03/14/25 15:35 Pulse Ox 98 03/14/25 15:35 Oxygen Delivery Method Room Air 03/14/25 15:35 BMI result Body Mass Index 26.2 Tobacco/Smoking Status: Tobacco use Status Tobacco use date assessed 03/14/25 03/14/25 15:39 Patient Tobacco Use Status Never used Tobacco 03/14/25 15:39 e-Cigarette/Vaping Use Never Used 03/14/25 15:39 PHQ-9: PHQ-9 Score PHQ-9: Total score 6 03/14/25 16:09 Thrive Assessment: Date of Thrive Assessment Date Thrive assessed 07/14/24 03/14/25 15:39 Currently or been in a relationship where the following occur: No concerns reported Const General: cooperative, healthy appearing, comfortable and no acute distress Orientation/consciousness: patient oriented x3 HENMT Head: Yes normocephalic Ears: hearing grossly normal bilaterally General nose exam: Normal external nose present Eyes General: appearance normal, both eyes and all related structures Conjunctivae: conjunctivae normal Neck Neck: Yes full ROM and Yes no lymphadenopathy Resp Effort & Inspection: normal respiratory effort Auscultation: clear to auscultation bilaterally, no crackles, no rales, no rhonchi and no wheezes Cardio Rate: regular rate Rhythm: regular rhythm GI Rectal Exam - Male: Yes deferred Skin General skin exam: no rashes or lesions noted Neuro General: patient oriented x3 Gait exam (Neuro): Normal gait present Extrem General: Yes normal to inspection, Yes full ROM and No edema Psych Affect: normal affect Attitude: cooperative Insight: Good insight present (Psych) Judgement: Good judgement present (Psych) Coding Level of Care Code Est Pt Level 3 (01831) Diagnoses Bright red blood per rectum K62.5 Assessment & Plan Assessment & Plan (1) Bright red blood per rectum: Comment: Patient's abdominal exam is benign and he is declining rectal exam. Patient is well-appearing however is tachycardic. Given that this patient has an appointment with his primary care physician on March 13, laboratories will be drawn today in anticipation of this appointment. Furthermore, patient will be discharged home with Zofran to be taken as needed and omeprazole to be taken daily for the next 3 weeks. Patient is in agreement with this plan of care and understands he may require sooner follow up if his laboratories are abnormal. Code(s): K62.5 - Hemorrhage of anus and rectum Category: Medical Plan: History consistent with hemorrhoids. Did place referral to GI as well however no anemia on last labs. The patient is advised to increase fiber intake through diet or supplements to alleviate symptoms. Avoid sitting on the toilet for extended periods to prevent exacerbation of hemorrhoids. Use hemorrhoid cream if experiencing significant pain. A referral to a clinical haematologist will be made for further evaluation if symptoms persist. Plan This note was constructed using voice recognition software. While every effort has been made to ensure accuracy and metalsmith helper, still areas may have been included sometimes these areas may affect the content or meeting of the given symptoms. Total time spent caring for the patient today was 20 minutes. This includes time spent before the visit reviewing the chart, time spent during the visit, and time spent after the visit and documentation. Patient was informed and verbally consented to the use of an ambient scribe for clinic note documentation during this visit. Orders: Referrals Gastroenterology Referral K21.9 - Gastro-esophageal reflux disease without esophagitis, K62.5 - Hemorrhage of anus and rectum
== END 2025-03-14 16:27 | disposition home or self-care (01) ==
LOC: HO.HMCH 15:34
PROVIDERS: PCP Internal Medicine
DX: K62.5 Hemorrhage of anus and rectum (principal)

== ENCOUNTER → 2025-03-14 15:33 | Outpatient (BNVA) | payer OTHER, SELFPAY | PROVIDERS: PCP Internal Medicine | DX: K21.9 Gastro-esophageal reflux disease without esophagitis (principal); F41.1 Generalized anxiety disorder; K62.5 Hemorrhage of anus and rectum | CPT/HCPCS: 99212 ==